=== PATIENT | male | born 1955 | race African-American/Black ===

== ENCOUNTER 2025-08-24 11:51 | Emergency (ER) | payer OTHER ==
[~2025-08-24] VITALS: Ht 172.7 cm; Wt 80.0 kg
[2025-08-24 11:54] VITALS: O2SAT 98
[2025-08-24 12:24] VITALS: BP 139/79; PULSE 61; RESP 16; TEMP 36.7; O2SAT 98
[2025-08-24] MEDS: SODIUM CHLORIDE 0.9% 1,000 ML IV ONE (13:15)
[2025-08-24 14:32] LABS: CLARITY URINE CLEAR (CLEAR); COLOR URINE YELLOW (YELLOW)
[2025-08-24 14:33] LABS: GLUCOSE URINE NEGATIVE (NEGATIVE); KETONES URINE NEGATIVE (NEGATIVE); LEUKOCYTE ESTERASE URINE NEGATIVE (NEGATIVE); NITRITE URINE NEGATIVE (NEGATIVE); OCCULT BLOOD URINE TRACE (NEGATIVE); PH URINE 6.0 (4.5-8.0); PROTEIN URINE TRACE (NEGATIVE); SPECIFIC GRAVITY URINE 1.012 (1.005-1.030); UROBILINOGEN URINE 0.2 E.U./dL (0.2-1.0)
[2025-08-24 14:45] LABS: *AMPHETAMINES SCREEN URINE NEGATIVE (NEGATIVE); *BARBITURATES SCREEN URINE NEGATIVE (NEGATIVE); *BENZODIAZEPINES SCREEN URINE NEGATIVE (NEGATIVE); *COCAINE SCREEN URINE NEGATIVE (NEGATIVE); METHADONE URINE SCREEN NEGATIVE (NEGATIVE); OPIATES URINE SCREEN NEGATIVE (NEGATIVE); PHENCYCLIDINE URINE SCREEN NEGATIVE (NEGATIVE)
[2025-08-24 14:46] LABS: CANNABINOID URINE SCREEN NEGATIVE (NEGATIVE); ECSTASY MDMA SCREEN URINE NEGATIVE (NEGATIVE)
[2025-08-24 14:57] LABS: BACTERIA URINE TRACE; SQUAMOUS EPITHELIAL CELL URINE RARE /lpf (RARE/1+)
[2025-08-24 14:58] LABS: MUCUS URINE TRACE /lpf (NONE/TRACE); RBC URINE NONE SEEN /hpf (0-2); WBC URINE 0-2 /hpf (0-2)
[2025-08-24] MEDS: ACETAMINOPHEN 500MG TABLET PO ONE (15:00)
[2025-08-24] MEDS: TETANUS, DIPHTHERIA, PERTUSSIS VAC/PF 0.5ML (>10YR OLD) IM ONE (15:00)
[2025-08-24] MEDS: LIDOCAINE HCL/EPINEPHRINE 1%-EPI 1:100,000 20ML VIAL INFIL ONE (15:00)
[2025-08-24 15:22] LABS: BASOPHILS % 0.1 % (0.0-2.0); EOSINOPHILS % 0.1 % (0.0-5.0); HEMATOCRIT. 34.3 % (42.0-52.0); HEMOGLOBIN. 11.6 g/dL (14.0-18.0); LYMPHOCYTES % 9.0 % (20.0-50.0); MEAN PLATELET VOLUME 8.6 fl (7.4-10.4); MONOCYTES % 2.8 % (2.0-8.0); NEUTROPHILS % 88.0 % (40.0-76.0); PLATELET 169 x1000/uL (130-400); RED BLOOD CELL COUNT 3.35 mill/uL (4.7-6.1); RED CELL DISTRIBUTION WIDTH 14.7 % (11.6-14.6)
[2025-08-24 15:24] LABS: TROPONIN I HIGH SENSITIVITY 11 ng/L (3.0-53)
[2025-08-24 15:40] LABS: INR 1.0
== END 2025-08-24 15:09 | disposition left against medical advice (07) ==
LOC: ER 13:24
DX: S03.2XXA Dislocation of tooth, initial encounter (principal); S01.511A Laceration without foreign body of lip, initial encounter; R55 Syncope and collapse; Z79.899 Other long term (current) drug therapy; X58.XXXA Exposure to other specified factors, initial encounter; Y93.89 Activity, other specified; Y92.89 Other specified places as the place of occurrence of the external cause; Y99.8 Other external cause status
CPT/HCPCS: 80305; 81003; 80320; 85025; 85610; 84484; 36415; 70450; 99284; J7030; 71045; G0480